=== PATIENT | male | born 1970 | race Caucasian/White ===

== ENCOUNTER 2018-06-11 10:16 | Outpatient (CLI) | payer OTHER ==
[~2018-06-11 10:16] MED LIST: ACIPHEX20 MG PO; ASA81 MG PO; CRESTOR40 MG PO; GLUCOPHAGE XR500 MG PO; VIT D PO; ZETIA10 MG PO
[2018-06-11] MEDS ORDERED: CELEBREX200MG PO (15:02)
[2018-06-11] MEDS ORDERED: TYLENOL PO (15:02)
== END 2018-06-11 13:05 ==
LOC: EKG 10:16
DX: I10 Essential (primary) hypertension (principal)

== ENCOUNTER 2018-06-13 05:12 | Day surgery (SDC) | payer OTHER ==
[~2018-06-13 05:12] MED LIST changes: +CELEBREX200MG PO; +TYLENOL PO
== END 2018-06-13 11:00 | disposition home or self-care (01) ==
LOC: CIR.AMB 05:12
DX: M75.42 Impingement syndrome of left shoulder (principal); M19.012 Primary osteoarthritis, left shoulder

== ENCOUNTER 2019-03-25 07:05 | Day surgery (SDC) | payer OTHER ==
[~2019-03-25 07:05] MED LIST changes: +METROGEL55 GM
== END 2019-03-25 15:05 | disposition home or self-care (01) ==
LOC: CIR.AMB 07:05
DX: M67.431 Ganglion, right wrist (principal)